=== PATIENT | female | born 1965 | race Caucasian/White ===

== ENCOUNTER → 2020-10-14 12:30 | Outpatient (CLI) | payer OTHER, SELFPAY ==
--- NOTE | ~2020-10-14 | MM_ITS ---
EXAMINATION: MM screening cathie BI w daylin HISTORY: Screening mammogram TECHNIQUE: Craniocaudal and mediolateral oblique 3-D tomosynthesis images were obtained and synthetic 2-D images were generated. CAD analysis was submitted and interpreted. COMPARISON: 08/01/2019, 03/11/2018, 11/18/2016 bilateral digital screening mammogram examinations BREAST PARENCHYMAL COMPOSITION: There are scattered areas of fibroglandular density. FINDINGS: There is no evidence of suspicious mass, calcification, or architectural distortion to sugg est malignancy in either breast. There has been no suspicious interval change. IMPRESSION: 1. No mammographic evidence of malignancy. 2. Recommend routine screening mammography in one year. BI-RADS Category 1: Negative Reviewed, dictated and finalized at location A. RAL MACHINIST
== END ==
PROVIDERS: PCP Family Medicine Adolescent Medicine; Visit Provider Nurse Practitioner Obstetrics & Gynecology
DX: Z12.31 Encounter for screening mammogram for malignant neoplasm of breast (principal)
CPT/HCPCS: 77063; 77067

== ENCOUNTER → 2020-10-14 12:32 | Outpatient (CLI) | payer OTHER, SELFPAY ==
--- NOTE | ~2020-10-14 | XR_ITS ---
EXAMINATION: XR hand LT min 3V DATE: 10/14/2020 13:30 INDICATION: Left hand pain. Fall. TECHNIQUE: 3 views of left hand were obtained. COMPARISON: None. FINDINGS: Bone alignment is normal. No fracture. There is mild osteoarthritis of first carpometacarpa l joint and first metacarpophalangeal joint. IMPRESSION: 1. Polyarticular osteoarthritis. Reviewed, dictated and finalized at location A. NICAL SUPPORT ANALYST
--- NOTE | ~2020-10-14 | XR_ITS ---
EXAMINATION: XR wrist LT w scaphoid DATE: 10/14/2020 13:30 INDICATION: Left wrist pain. Fall. TECHNIQUE: 5 views of left wrist were obtained. COMPARISON: Left wrist radiographs 02/17/19 FINDINGS: Bone alignment is normal. No fracture. There is mild osteoarthritis of first carpometacarpa l joint. IMPRESSION: 1. Mild osteoarthritis of first carpometacarpal joint. Reviewed, dictated and finalized at location A. NITIES TEACHER
== END ==
PROVIDERS: PCP Family Medicine Adolescent Medicine; Visit Provider Physician Assistant
DX: M19.032 Primary osteoarthritis, left wrist (principal); M19.042 Primary osteoarthritis, left hand
CPT/HCPCS: 73110; 73130

== ENCOUNTER → 2021-10-20 10:35 | Outpatient (CLI) | payer OTHER, SELFPAY ==
--- NOTE | ~2021-10-20 | MM_ITS ---
EXAMINATION: MM screening cathie BI w daylin HISTORY: Screening TECHNIQUE: Craniocaudal and mediolateral oblique 3-D tomosynthesis images were obtained and synthetic 2-D images were generated. CAD analysis was submitted and interpreted. COMPARISON: Comparison to multiple prior studies sequentially, with oldest reviewed study dated 08/25. BREAST PARENCHYMAL COMPOSITION: Breast composed of scattered areas of fibroglandular density FINDINGS: There is a new mass in the lower inner quadrant of the right breast, middle third. There is no evidence of suspicious mass, calcification, or architectural distortion to suggest malignancy in either breast. There has been no suspicious interval change. IMPRESSION: 1. New right breast mass, lower inner quadrant. 2. Additional spot compression and mediolateral views with possible follow-up breast ultrasound recom mended. BI-RADS Category 0: Incomplete: Needs additional imaging evaluation. Reviewed, dictated and finalized at location A. DYER IMPRESSION: 1. New right breast mass, lower inner quadrant. 2. Additional spot compression and mediolateral views with possible follow-up b reast ultrasound recommended. BI-RADS Category 0: Incomplete: Needs additional imaging evaluation.
== END ==
PROVIDERS: PCP Family Medicine Adolescent Medicine; Visit Provider Nurse Practitioner Obstetrics & Gynecology
DX: Z12.31 Encounter for screening mammogram for malignant neoplasm of breast (principal); R92.8 Other abnormal and inconclusive findings on diagnostic imaging of breast
CPT/HCPCS: 77063; 77067

== ENCOUNTER 2021-10-20 10:36 | Outpatient (CLI) | payer OTHER, SELFPAY ==
--- NOTE | ~2021-10-20 | XR_ITS ---
EXAMINATION: XR wrist LT w scaphoid DATE: 10/20/2021 11:46 INDICATION: Left wrist pain. TECHNIQUE: 5 views of left wrist were obtained. COMPARISON: Left wrist radiographs 10/14/2020 FINDINGS: Bone alignment is normal. No fracture. There is mild osteoarthritis of first carpometacarpa l joint and metacarpophalangeal joint. IMPRESSION: 1. Mild polyarticular osteoarthritis. Reviewed, dictated and finalized at location A. ARY CARE MD
--- NOTE | ~2021-10-20 | XR_ITS ---
EXAMINATION: XR elbow LT min 3V DATE: 10/20/2021 11:46 INDICATION: Left elbow pain. Fall. TECHNIQUE: 4 views of left elbow were obtained. COMPARISON: None. FINDINGS: Bone alignment is normal. No fracture. Joint spaces are well maintained. There is no elbow joint effusion. IMPRESSION: 1. Normal left elbow. Reviewed, dictated and finalized at location A. CAL STAFF DIRECTOR IMPRESSION: 1. Normal left elbow.
== END 2021-10-20 10:37 ==
PROVIDERS: PCP Family Medicine Adolescent Medicine; Visit Provider Physician Assistant
DX: M19.032 Primary osteoarthritis, left wrist (principal); M25.522 Pain in left elbow
CPT/HCPCS: 73080; 73110

== ENCOUNTER → 2021-11-19 09:57 | Outpatient (CLI) | payer OTHER, SELFPAY ==
--- NOTE | ~2021-11-19 | MMUS_ITS ---
EXAMINATION: MM diagnostic cathie RT w daylin, US breast RT limited HISTORY: Possible right breast mass on screening mammogram TECHNIQUE: Additional 3-D tomosynthesis images of the right breast were performed and synthetic 2-D i mages were generated. CAD analysis was submitted and interpreted. High resolution limited right breas t ultrasound was performed. COMPARISON: 10/20/2021, 10/14/2020, 08/01/2019 BREAST PARENCHYMAL COMPOSITION: There are scattered areas of fibroglandular density. FINDINGS: MAMMOGRAPHIC FINDINGS: A subtle asymmetry persists in the middle third of the central breast 6 cm from the nipple on the leather scraper niocaudal view. There is no associated calcification or architectural distortion. ULTRASOUND: There is no evidence of focal abnormal solid or cystic mass in the vicinity of the mammographic findi ng in question. IMPRESSION: 1. Probably benign right breast asymmetry on the craniocaudal view. 2. Recommend 6 month follow-up right diagnostic mammogram and possible ultrasound. BI-RADS category 3, probably benign findings. Reviewed, dictated and finalized at location A. ONE RECOVERY WORKER IMPRESSION: 1. Probably benign right breast asymmetry on the craniocaudal view. 2. Recommend 6 month follow-up right diagnostic mammogram and possible ultrasou nd. BI-RADS category 3, probably benign findings.
== END ==
PROVIDERS: PCP Family Medicine Adolescent Medicine; Visit Provider Nurse Practitioner Obstetrics & Gynecology
DX: R92.8 Other abnormal and inconclusive findings on diagnostic imaging of breast (principal)
CPT/HCPCS: 76642; 77061; 77065; G0279

== ENCOUNTER 2022-04-02 09:16 | Outpatient (CLI) | payer OTHER, SELFPAY ==
--- NOTE | ~2022-04-02 | MM_ITS ---
EXAMINATION: MM diagnostic cathie BI w daylin HISTORY: Left nipple sensitivity and six-month follow-up for probably benign right breast asymmetry TECHNIQUE: Craniocaudal, mediolateral, and mediolateral oblique 3-D tomosynthesis images of the breas ts were performed and synthetic 2-D images were generated. CAD analysis was submitted and interpreted . COMPARISON: 11/19/2021, 10/20/2021, 10/14/2020, 08/01/2019 BREAST PARENCHYMAL COMPOSITION: There are scattered areas of fibroglandular density. FINDINGS: There is no suspicious mass, calcification, or architectural distortion in either breast to suggest malignancy. There has been no suspicious interval change. No persistent asymmetry is identified in th e right breast. IMPRESSION: 1. No specific mammographic correlate is identified for the patient's left nipple sensitivity Further evaluation at this time should be based on clinical assessment. Continued follow-up physical examina tion is recommended. Previously described right breast asymmetry has resolved. 2. Recommend routine screening mammography in one year. BI-RADS Category 1: Negative Reviewed, dictated and finalized at location A. IMPRESSION: 1. No specific mammographic correlate is identified for the patient's left nipp le sensitivity Further evaluation at this time should be based on clinical asse ssment. Continued follow-up physical examination is recommended. Previously riaz cribed right breast asymmetry has resolved. 2. Recommend routine screening mammography in one year. BI-RADS Category 1: Negative
== END 2022-04-02 09:17 ==
LOC: MICIMG 09:17
PROVIDERS: PCP Family Medicine Adolescent Medicine; Visit Provider Nurse Practitioner Obstetrics & Gynecology
DX: N64.4 Mastodynia (principal)
CPT/HCPCS: 77062; 77066; G0279

== ENCOUNTER 2022-04-19 12:43 | Emergency (ER) | payer OTHER, SELFPAY ==
[2022-04-19 13:01] VITALS: BP 153/81; PULSE 85; RESP 18; TEMP 36.9; O2SAT 100
--- NOTE | 2022-04-19 13:16 | ED.UPPEXIN ---
HPI - Extremity Injury (Upper) General Chief Complaint: Extremity Injury, Upper Stated Complaint: rt hand pain History of Present Illness HPI narrative: Patient is a 56-year-old female who presents to the [facility] via POV for evaluation of a right hand injury that occurred today. She states her puppy excellently ran into her right hand causing pain and swelling to digits 3 through 5. Denies using OTC meds for symptoms. Pain worsens with movement. I Related Data Home Medications Medication Instructions Recorded Confirmed cholecalciferol (vitamin D3) 50 100 mcg PO DAILY 04/07/22 04/19/22 mcg (2,000 unit) capsule estradiol 1 mg tablet 1 mg PO DAILY 04/07/22 04/19/22 venlafaxine 150 mg tablet,extended 150 mg PO DAILY 04/07/22 04/19/22 release 24 hr dextroamphetamine-amphetamine ER PO 04/19/22 04/19/22 30 mg 24hr capsule,extend release (Adderall XR) Allergies Allergy/AdvReac Type Severity Reaction Status Date / Time erythromycin base Allergy Mild Rash Verified 04/19/22 13:05 Penicillins Allergy Unknown Rash Verified 04/19/22 13:05 Review of Systems Review of Systems: Pertinent negatives: fever, chills, sweats, change in appetite, poor p.o. intake, malaise, calf tenderness, skin color changes, rash, warmth, numbness, tingling, loss of sensation, deformity, decreased range of motion, weakness, difficulty with ambulation/coordination, nausea, vomiting, lymphadenopathy, shortness of breath, chest pain, heart palpitations, and heart murmur. [facility] Past Medical History Medical History Intestinal adhesions Para-ovarian adhesion Surgical History Surgical History History of adenoidectomy History of appendectomy History of bilateral oophorectomies History of hysterectomy Hx of tonsillectomy Family History Family History Mother Carcinoma of colon Ovarian cancer Sibling Colon polyp Grandparent Carcinoma of colon Ovarian cancer Social History Social History Smoking status: Never smoker Second hand tobacco smoke exposure: No Alcohol intake: current Alcohol use details: rare use Substance use: never Substance use type: does not use Sexual Orientation (if Verbalized by the Patient): Straight or Heterosexual Spiritual care concerns: No Agree to blood products: Yes Comments I have reviewed and agree with the patient's past medical, surgical, social, and family hx as documented by the RN. There is no relevant family history pertinent to the presenting complaint. Exam Narrative: GENERAL: Well-appearing, well-nourished, and in no acute distress. HEAD: Normocephalic, atraumatic. NECK: Supple. No Lymphadenopathy or nuchal rigidity appreciated. CHEST: Bilateral lung colvin are clear to auscultation. No respiratory distress. No evidence of cough or pleuritic cp upon examination. HEART: Regular rate and rhythm. No murmur, gallop, or rub heard. EXTREMITIES: Mild pain elicited to right third and fifth digit with all active/passive ROM. Mild swelling and moderate pain elicited to fourth digit with all active/passive ROM. Noevidence of decreased ROM, cyanosis, hematoma, laceration, abrasion, deformity, rash, or puncture. No evidence of dislocation, ligament laxity, effusion, or pain at rest. Pulses palpable at 2+, strength 5/5, and cap refill < 3 seconds in affected extremity. DTRs normal. Gait normal. SKIN: Warm, dry, no rash. NEURO: No focal deficits. Alert and oriented x3. Course Course Emergency Course: Patient expresses frustrations regarding no xray available at this time due to equipment failure. Offered transfer to another [facility]. Prefrence is [place] location although, this facility does not have xray either. Offered transfer to [facility]
== END 2022-04-19 13:46 | disposition home or self-care (01) ==
PROVIDERS: Emergency Provider Nurse Practitioner Family; PCP Family Medicine Adolescent Medicine
DX: M79.644 Pain in right finger(s) (principal)
CPT/HCPCS: 99212; G0463

== ENCOUNTER 2022-09-14 10:01 | Emergency (ER) | payer OTHER, SELFPAY ==
--- NOTE | ~2022-09-14 | XR_ITS ---
EXAMINATION: XR foot LT min 3V DATE: 09/14/2022 12:08 INDICATION: Left foot tenderness. TECHNIQUE: 4 views of left foot were obtained. COMPARISON: None. FINDINGS: There is ankylosis of third proximal interphalangeal joint. There are changes of fusion pro cedure of second proximal interphalangeal joint with implant. There are old healed osteotomies of the necks of the second and third metatarsals with fixation with screws. There is mild osteoarthritis of first metatarsophalangeal joint, some of the interphalangeal joints, and fifth metatarsophalangeal j oint. There is an enthesophyte at plantar aspect of calcaneal tuberosity. IMPRESSION: 1. Polyarticular osteoarthritis. 2. Ankylosis of third proximal interphalangeal joint. Fusion procedure of second proximal interphalan geal joint. Reviewed, dictated and finalized at location A. ERER IMPRESSION: 1. Polyarticular osteoarthritis. 2. Ankylosis of third proximal interphalangeal joint. Fusion procedure of secon d proximal interphalangeal joint.
--- NOTE | ~2022-09-14 | XR_ITS ---
EXAMINATION: XR tibia fibula LT 2V DATE: 09/14/2022 10:41 INDICATION: Left lower leg pain. Injury. TECHNIQUE: 2 views of left tibia and fibula were obtained. COMPARISON: None. FINDINGS: Bone alignment is normal. No fracture. There is mild knee joint osteoarthritis. IMPRESSION: 1. Mild left knee joint osteoarthritis. Reviewed, dictated and finalized at location A. ZINE KEEPER
--- NOTE | ~2022-09-14 | XR_ITS ---
EXAMINATION: XR ankle LT min 3V DATE: 09/14/2022 10:40 INDICATION: Left ankle injury and pain. TECHNIQUE: 4 views of left ankle were obtained. COMPARISON: None. FINDINGS: Bone alignment is normal. No fracture. Joint spaces are well maintained. There is an enthes ophyte at plantar aspect of calcaneal tuberosity. IMPRESSION: 1. No fracture. Reviewed, dictated and finalized at location A. SMISSION BUILDER IMPRESSION: 1. No fracture.
[2022-09-14 10:18] VITALS: BP 155/91; PULSE 91; RESP 18; TEMP 37.2; O2SAT 99
--- NOTE | 2022-09-14 11:41 | ED.LOWEXIN ---
HPI - Extremity Injury (Lower) General Chief Complaint: Extremity Injury, Lower Stated Complaint: fall Time Seen by Provider: 09/14/22 11:25 History of Present Illness HPI Narrative: Patient is a 56-year-old female here for evaluation of left foot, ankle and pain in her lower leg after a fall today. Patient states that she was walking down her basement steps carrying items when her socks slipped out from under her, causing her to fall down about 8 steps. She denies head injury or loss of consciousness. Patient was able to walk after the accident but just notes pain in her foot and ankle. She attempted 800 mg ibuprofen with moderate relief of her symptoms. No paresthesias in the foot, weakness. Patient was in her usual state of health prior to the fall. Related Data Home Medications Medication Instructions Recorded Confirmed cholecalciferol (vitamin D3) 50 100 mcg PO DAILY 04/07/22 09/02/22 mcg (2,000 unit) capsule estradiol 1 mg tablet 1 mg PO DAILY 04/07/22 09/02/22 venlafaxine 150 mg tablet,extended 150 mg PO DAILY 04/07/22 09/02/22 release 24 hr Allergies Allergy/AdvReac Type Severity Reaction Status Date / Time erythromycin base Allergy Mild Rash Verified 09/14/22 11:52 Penicillins Allergy Unknown Rash Verified 09/14/22 11:52 Review of Systems Review of Systems: Gen: Denies fevers or chills Eyes: Denies eye pain or visual change ENT: Denies congestion Respiratory: Denies shortness of breath or cough CV: Denies chest pain or palpitations GI: Denies abdominal pain nausea, emesis or diarrhea denies burning, urgency, frequency or hematuria Musculoskeletal: Reports left foot, ospina, ankle pain. Neuro: Denies numbness, tingling, weakness or focal weakness Skin: Denies rash Except as documented, all other systems reviewed and negative [facility] Past Medical History Medical History Intestinal adhesions Para-ovarian adhesion Surgical History Surgical History History of adenoidectomy History of appendectomy History of bilateral oophorectomies History of hysterectomy Hx of tonsillectomy Family History Family History Mother Carcinoma of colon Ovarian cancer Sibling Colon polyp Grandparent Carcinoma of colon Ovarian cancer Social History Social History Smoking status: Never smoker Second hand tobacco smoke exposure: No Alcohol intake: current Alcohol use details: rare use Substance use: never Substance use type: does not use Sexual Orientation (if Verbalized by the Patient): Straight or Heterosexual Spiritual care concerns: No Agree to blood products: Yes Exam Narrative: Gen: Alert, oriented, no acute distress Eyes: EOMI, no icterus Pulm: Respirations even and unlabored, symmetric thorax expansion, no audible stridor or visible cyanosis CV: Regular rate per telemetry GI: No distension, no voluntary/involuntary guarding Neuro: AOx4, moves all extremities without apparent difficulty or weakness, follows commands MSK: No obvious deformity noted to left lower extremity. Patient has bony tenderness to palpation along lateral aspect of the mid fibula. She has tenderness to palpation along the arch of the left foot and the medial malleolus. She has full range of motion in her foot and sensation is intact throughout the entire extremity. Skin: No jaundice, no visible bruising, rashes, lesions or wounds on exposed skin Psych: Normal mood/affect, insight/judgement good, adequate fund of knowledge, recent/remote memory intact Course Vital Signs Vital signs: Vital Signs Temperature 98.9 F 09/14/22 10:18 Pulse Rate 91 09/14/22 10:18 Respiratory Rate 18 09/14/22 10:18 Blood Pressure 155/91 H 09/14/22 10:18 Pulse Oximetry 99
[2022-09-14] MEDS: ACETAMINOPHEN 500 MG TABLET 1000 MG PO (11:52)
== END 2022-09-14 12:38 | disposition home or self-care (01) ==
PROVIDERS: Emergency Provider Emergency Medicine; PCP Family Medicine Adolescent Medicine
DX: S93.402A Sprain of unspecified ligament of left ankle, initial encounter (principal); S96.912A Strain of unspecified muscle and tendon at ankle and foot level, left foot, initial encounter; Z90.722 Acquired absence of ovaries, bilateral; Z90.710 Acquired absence of both cervix and uterus; W10.9XXA Fall (on) (from) unspecified stairs and steps, initial encounter
CPT/HCPCS: 73590; 73610; 73630; 99283; A9270

== ENCOUNTER 2022-11-13 15:50 | Emergency (ER) | payer OTHER, SELFPAY ==
--- NOTE | ~2022-11-13 | XR_ITS ---
EXAMINATION: XR chest 2V DATE: 11/13/2022 16:23 INDICATION: Wheezing. TECHNIQUE: Frontal and lateral views of the chest were obtained. COMPARISON: Chest 2 views 08/28/2013 FINDINGS: There is mild atelectasis in lingula. No pleural effusion or pneumothorax. The heart size i s normal. IMPRESSION: 1. Mild atelectasis in lingula. Reviewed, dictated and finalized at location A. T OFFICE SUPERVISOR
[2022-11-13 16:03] VITALS: BP 160/80; PULSE 93; RESP 16; TEMP 36.8; O2SAT 99
--- NOTE | 2022-11-13 16:09 | ED.URI ---
HPI - URI/Sore Throat General Chief Complaint: Upper Respiratory Infection Stated Complaint: WHEEZING/ASHTMA/ITCHING THROAT/EARS Time Seen by Provider: 11/13/22 16:01 Source: patient Mode of arrival: ambulatory Limitations: no limitations History of Present Illness HPI Narrative: Patient presents today complaining of wheezing since late August with itching in her throat. States wheezing has been worsening since onset and she also has occasional cough. Patient had asthma about 20 years ago but had not had any problems with it for the last 20 years. One month ago she called a telemedicine line and was given a prescription for azithromycin an Advair. Reports no improvement in symptoms with these prescriptions. Related Data Home Medications Medication Instructions Recorded Confirmed cholecalciferol (vitamin D3) 50 100 mcg PO DAILY 04/07/22 11/13/22 mcg (2,000 unit) capsule estradiol 1 mg tablet 1 mg PO DAILY 04/07/22 11/13/22 venlafaxine 150 mg tablet,extended 150 mg PO DAILY 04/07/22 11/13/22 release 24 hr albuterol sulfate 90 mcg/actuation 90 mcg inhalation Q4-6H 11/13/22 11/13/22 aerosol inhaler fluticasone 250 mcg-salmeterol 50 250 inh inhalation BID 11/13/22 11/13/22 mcg/dose blistr powdr for inhalation (Advair Diskus) Allergies Allergy/AdvReac Type Severity Reaction Status Date / Time erythromycin base Allergy Mild Rash Verified 11/13/22 16:01 Penicillins Allergy Unknown Rash Verified 11/13/22 16:01 Review of Systems Review of Systems: CONSTITUTIONAL: Denies body aches, fever, chills, or sweats. EYES: Denies visual changes, redness, or discharge. ENT: Denies rhinorrhea, congestion, sore throat, or otalgia.+ itchy throat CARDIOVASCULAR: Denies chest pain, palpitations, or edema. RESPIRATORY: + cough, wheezing GASTROINTESTINAL: Denies abdominal pain, nausea, vomiting, or diarrhea. GENITOURINARY: Denies dysuria or hematuria. SKIN: Denies rash, itching, or wounds. MUSCULOSKELETAL: Denies back pain, joint pain, or myalgia. NEUROLOGIC: Denies headache, numbness, tingling, or weakness. PSYCH: Denies depression or anxiety. [facility] Past Medical History Medical History (Updated 11/13/22 @ 16:37 by Ericka Silverman, HAND WASHER, ) Asthma Intestinal adhesions Para-ovarian adhesion Surgical History Surgical History History of adenoidectomy History of appendectomy History of bilateral oophorectomies History of hysterectomy Hx of tonsillectomy Family History Family History Mother Carcinoma of colon Ovarian cancer Sibling Colon polyp Grandparent Carcinoma of colon Ovarian cancer Social History Social History Smoking status: Never smoker Second hand tobacco smoke exposure: No Alcohol intake: current Alcohol use details: rare use Substance use: never Substance use type: does not use Living arrangements: with family Occupation/Education: unemployed Sexual Orientation (if Verbalized by the Patient): Straight or Heterosexual Spiritual care concerns: No Agree to blood products: Yes Comments At time of signature, I have reviewed and agree with nursing past medical, surgical, social and family history unless otherwise noted. Please see nursing chart for further information. There is no relevant family history pertinent to the presenting complaint Exam Narrative: GENERAL: Well-appearing, well-nourished, and in no acute distress. HEAD: Normocephalic, atraumatic. EYES: EOMI. No redness or drainage. Conjunctivae normal. ENT: Mucous membranes pink and moist. Nares clear. No rhinorrhea. Throat normal. Uvula midline. NECK: Normal AROM. Supple. No lymphadenopathy. CHEST: No respiratory distress. Expiratory wheezing throughout. Inspiratory wheeze in left lower lobe. HEART: Regular rate and rhyth
== END 2022-11-13 16:40 | disposition home or self-care (01) ==
PROVIDERS: Emergency Provider Nurse Practitioner; PCP Family Medicine Adolescent Medicine
DX: R06.2 Wheezing (principal)
CPT/HCPCS: 71046; 99213; G0463

== ENCOUNTER → 2023-09-08 14:12 | Outpatient (CLI) | payer OTHER, SELFPAY ==
--- NOTE | ~2023-09-08 | MM_ITS ---
EXAMINATION: MM screening [facility] BI w daylin HISTORY: Screening mammogram TECHNIQUE: Craniocaudal and mediolateral oblique 3-D tomosynthesis images were obtained and synthetic 2-D images were generated. CAD analysis was submitted and interpreted. COMPARISON: 04/02/2022, 11/19/2021, 10/20/2021, 10/14/2020 BREAST PARENCHYMAL COMPOSITION: There are scattered areas of fibroglandular density. FINDINGS: A stable mass in the middle third of the upper outer quadrant of the left breast is consist ent with a benign finding given the lack of interval change. No suspicious mass, calcification, or ar chitectural distortion are identified in either breast to suggest malignancy. There has been no suspi cious interval change. IMPRESSION: 1. No mammographic evidence of malignancy. 2. Recommend routine screening mammography in one year. BI-RADS Category 2: Benign finding(s). Reviewed, dictated and finalized at location A. CLE MECHANIC
== END ==
PROVIDERS: PCP Family Medicine Adolescent Medicine; Visit Provider Nurse Practitioner Obstetrics & Gynecology
DX: Z12.31 Encounter for screening mammogram for malignant neoplasm of breast (principal)
CPT/HCPCS: 77063; 77067